=== PATIENT | female | born 1965 | race Caucasian/White ===

== ENCOUNTER 2021-05-12 17:43 | Emergency (ER) | payer BC ==
[2021-05-12 19:08] VITALS: BP 176/103; TEMP 99.3
--- NOTE | 2021-05-12 20:17 | ED ---
General Adult HPI - General Source: patient, family, RN notes reviewed Mode of arrival: ambulatory Limitations: no limitations - History of Present Illness -: days(s) (4) Location: head Radiation: non-radiation Severity scale (1-10): 0 Consistency: constant Improves with: none Worsens with: none Associated Symptoms: cough, fever/chills, headaches, malaise, other (loss of taste, congestion) <Justyn Clayton - Last Filed: 05/13/21 00:42> <aSmara Mir - Last Filed: 05/13/21 16:36> - General Chief complaint: Headache Stated complaint: Covid+,Wants antibody Time Seen by Provider: 05/12/21 20:00 - History of Present Illness Initial comments: 56-year-old female, well-appearing alert and oriented 4, presents to the emergency room with complaints of cough congestion body aches and loss of taste for 4 days. She tested positive for coronavirus on the . She has been vaccinated. She is here for monoclonal antibodies infusion. She does have a history of asthma. She denies any chest pain, nausea vomiting or diarrhea. (Justyn Clayton) - Related Data Previous Rx's Medication Instructions Recorded Albuterol Inhaler [Ventolin Hfa 2 puff INHALATION Q4H PRN #8 gm 05/12/21 Inhaler] Allergies Allergy/AdvReac Type Severity Reaction Status Date / Time Penicillins Allergy Rash/Hives Verified 05/12/21 19:08 Review of Systems ROS Other: All systems not noted in ROS Statement are negative. <Justyn Clayton - Last Filed: 05/13/21 00:42> ROS Other: All systems not noted in ROS Statement are negative. <Samara Mir - Last Filed: 05/13/21 16:36> ROS Statement: Those systems with pertinent positive or pertinent negative responses have been documented in the HPI. Past Medical History Past Medical History: Asthma History of Any Multi-Drug Resistant Organisms: None Reported Past Surgical History: No Surgical Hx Reported Past Psychological History: No Psychological Hx Reported Smoking Status: Never smoker Past Alcohol Use History: None Reported Past Drug Use History: None Reported <Justyn Clayton - Last Filed: 05/13/21 00:42> General Exam Limitations: no limitations General appearance: alert, in no apparent distress Head exam: Present: atraumatic, normocephalic, normal inspection Eye exam: Present: normal appearance, EOMI ENT exam: Present: normal exam, normal oropharynx, mucous membranes moist Neck exam: Present: normal inspection, full ROM. Absent: tenderness, meningismus, lymphadenopathy, thyromegaly Respiratory exam: Present: normal lung sounds bilaterally. Absent: respiratory distress, wheezes, rales, rhonchi, stridor Cardiovascular Exam: Present: regular rate, normal rhythm, normal heart sounds. Absent: systolic murmur, diastolic murmur, rubs, gallop, clicks, JVD Extremities exam: Present: normal capillary refill Neurological exam: Present: alert, oriented X3, normal gait Psychiatric exam: Present: normal affect, normal mood Skin exam: Present: warm, dry, intact, normal color. Absent: rash, cyanosis, diaphoretic <Justyn Clayton - Last Filed: 05/13/21 00:42> Course Vital Signs 05/12/21 05/12/21 19:05 23:09 Temperature 99.3 F Pulse Rate 77 72 Respiratory 18 16 Rate Blood Pressure 176/103 O2 Sat by Pulse 99 97 Oximetry Medical Decision Making <Justyn Clayton - Last Filed: 05/13/21 00:42> <Samara Mir - Last Filed: 05/13/21 16:36> - Medical Decision Making 56-year-old female, well-appearing alert and oriented 4, presents to the emergency room with complaints of cough congestion body aches and loss of taste for 4 days. She tested positive for coronavirus on the and positive in ER today. She has been vaccinated. She was given the monoclonal antibodies infusion as requested and tolerated it without any complications. She does have a history of asthma and was given a prescription for albuterol. She was instructed to follow-up with her primary care doctor next week and return to the emergency room with any new or worsening symptoms. (Justyn Clayton) I was available for consultation in the emergency department. The history and physical exam were done by the midlevel provider. I was consulted for this patients care. I reviewed the case with the midlevel provider and based on their presentation of the patient, I agree with the assessment, medical decision making and plan of care as documented. Chart was dictated using [employer] dictation software. Attempts were made to correct any dictation errors however some typographical errors may persist. (Samara Mir) - Lab Data Lab Results 05/12/21 Range/Units 22:17 Coronavirus (PCR) Detected A (Not Detectd) Disposition Is patient prescribed a controlled substance at d/c from ED?: No Time of Disposition: 23:05 <Justyn Clayton - Last Filed: 05/13/21 00:42> <Samara Mir - Last Filed: 05/13/21 16:36> Clinical Impression: COVID-19 Disposition: HOME SELF-CARE Condition: Good Instructions (If sedation given, give patient instructions): Coronavirus Disease 2019 (COVID-19) Additional Instructions: Return to the emergency room with any new or concerning symptoms. Vitamin C, vitamin D and zinc to improve immune health. Increase your fluid intake. Prescriptions: Albuterol Inhaler [Ventolin Hfa Inhaler] 2 puff INHALATION Q4H PRN #8 gm PRN Reason: Dyspnea Referrals: Nonstaff,Physician [Primary Care Provider] - 1-2 days
[2021-05-12] MEDS ORDERED: SODIUM CHLORIDE 0.9% 50 ML IVPB ONE (21:45)
[2021-05-12] MEDS ORDERED: BAMLANIVIMAB (EUA) 700 MG, ETESEVIMAB (EUA) 1,400 MG in SODIUM CHLORIDE 0.9% 50 ML IVPB ONE (22:15)
[2021-05-12 23:09] VITALS: PULSE 72; RESP 16
== END 2021-05-12 23:10 | disposition home or self-care (01) ==
LOC: EC 17:43
DX: U07.1 COVID-19 (principal); J45.909 Unspecified asthma, uncomplicated; Z88.0 Allergy status to penicillin
CPT/HCPCS: 87635; 99284; J3490